=== PATIENT | female | born 1995 | race Caucasian/White ===

== ENCOUNTER 2016-10-07 06:50 | Emergency (ER) | payer SELFPAY ==
[2016-10-07 07:44] LABS: BASOPHIL % 0.1 % (0-2); PLATELET COUNT 183 x10^3mcL (130-400)
[2016-10-07 08:31] LABS: microscopic required? YES; urine erythrocyte 2+ (NEGATIVE)
[2016-10-07 10:39] VITALS: BP 124/74
== END 2016-10-07 10:39 | disposition home or self-care (01) ==
LOC: ED 06:50
PROVIDERS: Emergency Medicine
DX: O23.02 Infections of kidney in pregnancy, second trimester (principal); Z3A.15 15 weeks gestation of pregnancy; Z79.899 Other long term (current) drug therapy; Z91.010 Allergy to peanuts
CPT/HCPCS: J0696

== ENCOUNTER 2016-12-28 14:10 | Emergency (ER) | payer MEDICAID ==
[2016-12-28 14:52] VITALS: BP 137/77
== END 2016-12-28 14:52 | disposition home or self-care (01) ==
LOC: ED 14:10
DX: O99.89 Other specified diseases and conditions complicating pregnancy, childbirth and the puerperium (principal); M54.5 Low back pain; Z3A.27 27 weeks gestation of pregnancy

== ENCOUNTER 2018-02-24 10:26 | Emergency (ER) | payer MEDICAID ==
[~2018-02-24] VITALS: Ht 165.1 cm; Wt 55.3 kg
[2018-02-24 10:34] VITALS: BP 118/77; Ht 165.1 cm; Wt 55.3 kg
[2018-02-24 11:15] LABS: PLATELET COUNT 206 x10^3mcL (130-400); RED CELL DISTRIBUTION WIDTH 12.4 % (11.5-14.5)
[2018-02-24 11:19] LABS: CALCIUM 9.3 mg/dL (8.5-10.1); CARBON DIOXIDE 22.7 mmol/L (21-32); CHLORIDE SERUM 100 mmol/L (98-107); CREATININE SERUM 0.7 mg/dL (0.6-1.0); GFR1 > 60 mL/min; GLUCOSE SERUM 92 mg/dL (74-106); POTASSIUM SERUM 3.9 mmol/L (3.5-5.1); SODIUM SERUM 137 mmol/L (136-145)
== END 2018-02-24 12:31 | disposition home or self-care (01) ==
LOC: ED 10:26
PROVIDERS: Emergency Medicine
DX: E86.0 Dehydration (principal); R42 Dizziness and giddiness; R11.0 Nausea; R63.0 Anorexia; Z91.010 Allergy to peanuts; Z91.018 Allergy to other foods
CPT/HCPCS: 36415; Q0162

== ENCOUNTER 2018-11-24 17:44 | Emergency (ER) | payer OTHER ==
[~2018-11-24] VITALS: Ht 165.1 cm; Wt 56.2 kg
[2018-11-24 17:59] VITALS: Ht 165.1 cm; Wt 56.2 kg
[2018-11-24 18:41] LABS: BASOPHIL % 0.3 % (0-2); PLATELET COUNT 196 x10^3mcL (130-400); RED CELL DISTRIBUTION WIDTH 13.8 % (11.5-14.5)
[2018-11-24 18:50] LABS: CALCIUM 9.1 mg/dL (8.5-10.1); CARBON DIOXIDE 24.9 mmol/L (21-32); CHLORIDE SERUM 101 mmol/L (98-107); CREATININE SERUM 0.6 mg/dL (0.6-1.0); GFR1 > 60 mL/min; GLUCOSE SERUM 88 mg/dL (74-106); POTASSIUM SERUM 3.4 mmol/L (3.5-5.1); SODIUM SERUM 136 mmol/L (136-145)
[2018-11-24 18:54] LABS: ALBUMIN 4.1 g/dL (3.4-5.0); ALKALINE PHOSPHATASE 57 U/L (46-116); ALT/SGPT 18 U/L (14-59); AST/SGOT 11 U/L (15-37); BILIRUBIN TOTAL 0.29 mg/dL (0.20-1.00); LIPASE 70 IU/L (73-393); TOTAL PROTEIN, SERUM 7.6 g/dL (6.4-8.2)
[2018-11-24 18:58] LABS: microscopic required? YES; urine erythrocyte NEGATIVE (NEGATIVE)
[2018-11-24 20:24] VITALS: BP 127/69
== END 2018-11-24 20:24 | disposition home or self-care (01) ==
LOC: ED 17:44
PROVIDERS: Emergency Medicine
DX: N39.0 Urinary tract infection, site not specified (principal); Z33.1 Pregnant state, incidental; Z91.010 Allergy to peanuts; Z91.018 Allergy to other foods
CPT/HCPCS: 36415

== ENCOUNTER 2019-03-15 18:45 | Emergency (ER) | payer OTHER ==
[~2019-03-15] VITALS: Ht 165.1 cm; Wt 61.2 kg
[2019-03-15 18:50] VITALS: Ht 165.1 cm; Wt 61.2 kg
[2019-03-15 19:51] LABS: BASOPHIL % 0.5 % (0-2); PLATELET COUNT 195 x10^3mcL (130-400); RED CELL DISTRIBUTION WIDTH 13.6 % (11.5-14.5)
[2019-03-15 20:01] LABS: CARBON DIOXIDE 24.5 mmol/L (21-32); CHLORIDE SERUM 103 mmol/L (98-107); CREATININE SERUM 0.8 mg/dL (0.6-1.0); GFR1 > 60 mL/min; GLUCOSE SERUM 87 mg/dL (74-106); POTASSIUM SERUM 3.6 mmol/L (3.5-5.1); SODIUM SERUM 139 mmol/L (136-145)
[2019-03-15 20:06] LABS: ALBUMIN 3.1 g/dL (3.4-5.0); ALKALINE PHOSPHATASE 56 U/L (46-116); ALT/SGPT 16 U/L (14-59); AST/SGOT 10 U/L (15-37); BILIRUBIN TOTAL 0.21 mg/dL (0.20-1.00); TOTAL PROTEIN, SERUM 6.9 g/dL (6.4-8.2)
[2019-03-15 22:33] VITALS: BP 116/67
== END 2019-03-15 22:34 | disposition home or self-care (01) ==
LOC: ED 18:45
PROVIDERS: Emergency Medicine
DX: O26.892 Other specified pregnancy related conditions, second trimester (principal); R11.2 Nausea with vomiting, unspecified; R42 Dizziness and giddiness; Z3A.22 22 weeks gestation of pregnancy; Z91.010 Allergy to peanuts; Z91.018 Allergy to other foods
CPT/HCPCS: J7030